=== PATIENT | female | born 2000 | race Caucasian/White ===

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

== ENCOUNTER 2019-12-28 12:02 | Emergency (ER) | payer BC ==
[~2019-12-28] VITALS: Ht 160 cm; Wt 56.7 kg
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
--- OUTSIDE RECORDS SUMMARY | 2019-12-28 12:05 | XMS REPORT | Summary of Care ---
Author Author [facility] Organization [facility] Address Unknown Phone Unavailable Care Team Providers Care Herb Grower Name Role Phone Pcp, Patient Does Not Have A PCP [phone] Encounter Details Care Team Description Date Type Department Doctor Unassigned, [address] [place] [address] 03/11/2019 Orders Only [facility] [address] [place] [address] Allergies Comments Active Allergy Reactions Severity Noted Date Bulk Chemical Hives 10/18/2015 documented as of this encounter (statuses as of 03/18/2019) Medications End Date Status Medication Sig Dispensed Refills Start Date Active albuterol 90 Inhale 2 0 mcg/actuation inhaler Puffs. Active multivitamin Take 1 tablet 90 tablet 3 ( VITAMIN) by mouth 8 tabletIndications: daily. Encounter for supervision of normal first in first trimester Active budesonide/formoterol Inhale. 0 fumarate (SYMBICORT INHALE) Active ALBUTEROL INHALE Inhale. 0 Active Progesterone Micronized Insert 1 30 Each 3 (ENDOMETRIN) 100 mg suppository 9 vaginal insert in vagina BID until 12 weeks gestation documented as of this encounter (statuses as of 03/18/2019) Active Problems Problem Noted Date History of chlamydia 04/19/2018 Estimated Date of Delivery Comments Yes 07/14/2019 Based on Ultrasound , Entered from OB Ultrasound Reporting. documented as of this encounter (statuses as of 03/18/2019) Social History Date Tobacco Use Types Packs/Day Years Used Quit: 04/12/2018 Passive Smoke Exposure - Cigarettes 0.25 1 Never Smoker Smokeless Tobacco: Never Used Drinks/Week oz/Week Comments Alcohol Use not since No Estimated Date of Delivery Comments Yes 07/14/2019 Based on Ultrasound , Entered from OB Ultrasound Reporting. Sex Assigned at Date Recorded Not on file Industry Job Start Date Occupation Not on file Not on file Not on file Travel End Travel History Travel Start No recent travel history available. 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 Health Maintenance Due Date Last Done Comments MENINGOCOCCAL B VACCINES 2009 (1 of 2 - Risk Bexsero 2-dose series) HPV VACCINES (1 - Female 2014 3-dose series) DTaP,Tdap,and Td Vaccines 2018 (1 - Tdap) INFLUENZA VACCINE 04/13/2019 CHLAMYDIA SCREENING 11/27/2019 11/26/2018, 2017 MENINGOCOCCAL VACCINE Aged Out No longer eligib le based on patient's age to complete this topic PNEUMOCOCCAL 0-64 YEARS Aged Out No longer elig ible based COMBINED SERIES on patient's age to complete this topic documented as of this encounter Procedures Comments Procedure Name Priority Date/Time Associated Diag nosis AUTHORIZATION FOR RELEASE Routine 03/11/2019 OF PHI 12:01 AM CDT documented in this encounter Results Not on filedocumented in this encounter Insurance Type Payer Benefit Subscriber ID Effective Phone Address Plan / Dates Group PPO/POS BCBS OF [place] BCBS OF [id number] 2018-P [phone] [address] [facility] [id number] OUT OF [facility] [id number] Medicaid [place] [facility] [place] xxxxxxxxx 9-P PLAN - MANAGED MEDICAID [employer]ILDR[employer] documented as of this encounter
--- OUTSIDE RECORDS SUMMARY | 2019-12-28 12:05 | XMS REPORT | Summary of Care ---
Author Author [facility] - Health Organization [facility] - Health Address Unknown Phone Unavailable Care Team Providers Care Shoemaking Cutter Name Role Phone Pcp, Patient Does Not Have A PCP [phone] Encounter Details Care Team Description Date Type Department Doctor Unassigned, [address] [place] [address] 04/02/2019 Orders Only [facility] [address] [place] [address] Allergies Comments Active Allergy Reactions Severity Noted Date Bulk Chemical Hives 10/18/2015 documented as of this encounter (statuses as of 04/02/2019) Medications End Date Status Medication Sig Dispensed [...] as of this encounter (statuses as of 04/02/2019) Active Problems Problem Noted Date History of chlamydia 04/19/2018 Estimated Date of Delivery Comments Yes 07/14/2019 Based on Ultrasound , Entered from OB Ultrasound Reporting. 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 Reviewer Maternal Medi cine Visit Health Maintenance Due Date Last Done Comments MENINGOCOCCAL B VACCINES 2009 (1 of 2 - Risk Bexsero 2-dose series) HPV VACCINES (1 - Female 2014 3-dose series) DTaP,Tdap,and Td Vaccines 2018 (1 - Tdap) INFLUENZA VACCINE (#1) 2019 CHLAMYDIA SCREENING 11/27/2019 11/26/2018, 2017 MENINGOCOCCAL VACCINE Aged Out No longer eligib le based on patient's age to complete this topic PNEUMOCOCCAL 0-64 YEARS Aged Out No longer elig ible based COMBINED SERIES on patient's age to complete this topic documented as of this encounter Procedures Comments Procedure Name Priority Date/Time Associated Diag nosis AUTHORIZATION FOR RELEASE Routine 04/02/2019 OF PHI 12:01 AM CDT documented in this encounter Results Not on filedocumented in this encounter Insurance Type Payer Benefit Subscriber ID Effective Phone Address Plan / Dates Group PPO/POS BC[place] BCBS OF [id number] 2018-P [phone] [facility] [address] OUT OF [facility] [id number] Medicaid [place] [facility] [place] xxxxxxxxx 9-P PLAN - MANAGED MEDICAID [employer]ILDR[employer] documented as of this encounter
--- OUTSIDE RECORDS SUMMARY | 2019-12-28 12:05 | XMS REPORT | Summary of Care ---
Author Author [facility] - Health Organization [facility] - [facility] Address Unknown Phone Unavailable Care Team Providers Care Manager Digital Ad Operations Name Role Phone Pcp, Patient Does Not Have A PCP [phone] Reason for Visit * Reason Comments Results Encounter Details Care Team Description Date Type Department Mayra Patterson MD [address] [place], [place] [address] Results 03/12/2019 Telephone [facility], [address], [address] [place] [address] Allergies Comments Active Allergy Reactions Severity Noted Date Bulk Chemical Hives 10/18/2015 documented as of this encounter (statuses as of 03/13/2019) Medications End Date Status Medication Sig Dispensed [...] as of this encounter (statuses as of 03/13/2019) Active Problems Problem Noted Date History of chlamydia 04/19/2018 Estimated Date of Delivery Comments Yes 07/14/2019 Based on Ultrasound , Entered from OB Ultrasound Reporting. 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
--- OUTSIDE RECORDS SUMMARY | 2019-12-28 12:05 | XMS REPORT ---
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 ISTAT-GLUCOSE (test code = GLUP) 76 MG/DL 70-110 N ISTAT-BUN (test code = BUNP) 3 MG/DL 7-18 L BEDSIDE CREATININE (test code = CREATBED) 0.4 MG/DL 0.6-1.3 L GLOMERULAR FILTRATION RATE POC (test code = GFRBED) 216 ML/MIN URINALYSIS [id number] 16:23:00* Test Item Value Reference Range Interpretation Comments UA COLOR (test code = COLU) YELLOW YEL/STRAW UA APPEARANCE (test code = APPU) SL CLOUDY CLEAR UA GLUCOSE DIPSTICK (test code = DGLUU) NEGATIVE NEGATIVE UA BILIRUBIN DIPSTICK (test code = BILU) NEGATIVE NEGATIVE UA KETONE DIPSTICK (test code = KETU) NEGATIVE NEGATIVE UA SPECIFIC GRAVITY (test code = SGU) 1.025 1.005-1.030 N UA BLOOD DIPSTICK (test code = HALIE) NEGATIVE NEGATIVE UA PH DIPSTICK (test code = ANY) 6.0 5.0-7.0 N UA PROTEIN DIPSTICK (test code = PROU) NEGATIVE NEGATIVE UA UROBILINIOGEN DIPSTICK (test code = URO) 2.0 mg/dL 0.2-1.0 A UA NITRITE DIPSTICK (test code = SUSSY) NEGATIVE NEGATIVE UA LEUKOCYTE ESTERASE DIPSTICK (test code = LEUU) 1+ NEGA TIVE A UA RBC (test code = RBCU) 0-3 RBC/HPF 0-3 UA WBC NO REFLEX (test code = WBCUCL) 4-9 WBC/HPF 0-3 A UA BACTERIA (test code = BACU) 1+ /HPF NONE SEEN A UA SQUAMOUS CELLS (test code = SQU) 11-25 /HPF NONE SEEN A UA MUCUS (test code = MUCU) 1+ /LPF NONE SEEN URINALYSIS [id number] 19:24:00* Test Item Value Reference Range Interpretation Comments UA COLOR (test code = COLU) Light-Yellow YELLOW UA APPEARANCE (test code = APPU) CLEAR CLEAR UA GLUCOSE DIPSTICK (test code = DGLUU) NEGATIVE mg/dL NEGATIVE UA BILIRUBIN DIPSTICK (test code = BILU) NEGATIVE mg/dL NEGATIVE UA KETONE DIPSTICK (test code = KETU) NEGATIVE mg/dL NEGATIVE UA SPECIFIC GRAVITY (test code = SGU) 1.020 1.001-1.035 UA BLOOD DIPSTICK (test code = HALIE) Negative mg/dL NEGATIVE UA PH DIPSTICK (test code = NAY) 7.5 5.0-8.0 UA PROTEIN DIPSTICK (test code = PROU) NEGATIVE mg/dL NEGATIVE UA UROBILINIOGEN DIPSTICK (test code = URO) 2.0 (1+) mg/dL NEGATIVE A UA NITRITE DIPSTICK (test code = SUSSY) NEGATIVE NEGATIVE UA LEUKOCYTE ESTERASE W REFLEX (test code = LEUUR) 75 Adela/uL (1+) Adela/uL NEGATIVE A UA WBC (test code = WBCU) 6-10 per HPF 0-5 A UA RBC (test code = RBCU) 0-2 #/HPF 0-5 UA EPITHELIAL CELLS (test code = EPIU) FEW per HPF FEW UA BACTERIA (test code = BACU) NONE SEEN #/HPF NONE UA MUCUS (test code = MUCU) FEW #/LPF FEW Urine Source? Clean CatchURINALYSIS [id number] 19:19:00* Test Item Value Reference Range Interpretation Comments UA COLOR (test code = COLU) Light-Yellow YELLOW UA APPEARANCE (test code = APPU) CLEAR CLEAR UA GLUCOSE DIPSTICK (test code = DGLUU) NEGATIVE mg/dL NEGATIVE UA BILIRUBIN DIPSTICK (test code = BILU) NEGATIVE mg/dL NEGATIVE UA KETONE DIPSTICK (test code = KETU) NEGATIVE mg/dL NEGATIVE UA SPECIFIC GRAVITY (test code = SGU) 1.020 1.001-1.035 UA BLOOD DIPSTICK (test code = HALIE) Negative mg/dL NEGATIVE UA PH DIPSTICK (test code = NAY) 7.5 5.0-8.0 UA PROTEIN DIPSTICK (test code = PROU) NEGATIVE mg/dL NEGATIVE UA UROBILINIOGEN DIPSTICK (test code = URO) 2.0 (1+) mg/dL NEGATIVE A UA NITRITE DIPSTICK (test code = SUSSY) NEGATIVE NEGATIVE UA LEUKOCYTE ESTERASE W REFLEX (test code = LEUUR) 75 Adela/uL (1+) Adela/uL NEGATIVE A UA WBC (test code = WBCU) per HPF 0-5 UA RBC (test code = RBCU) per HPF 0-5 UA EPITHELIAL CELLS (test code = EPIU) per HPF Few UA BACTERIA (test code = BACU) per HPF NONE Urine Source? Clean CatchBASIC METABOLIC [id number] 17:53:00* Test Item Value Reference Range Interpretation Comments SODIUM (test code = NA) 137 mmol/L 136-145 N POTASSIUM (test code = K) 3.8 mmol/L 3.5-5.1 N CHLORIDE (test code = CL) 106.0 mmol/L 98-107 N CARBON DIOXIDE (test code = CO2) 22.0 mmol/L 21-32 N ANION GAP (test code = GAP) 12.8 10-20 N GLUCOSE (test code = GLU) 83 mg/dL 74-106 N BLOOD UREA NITROGEN (test code = BUN) 8 mg/dL 7-18 N GLOMERULAR FILTRATION RATE (test code = GFR) > 60 mL/min >=60 Estimated GFR by using Modified MDRD formula.Chronic kidney disease is defined as either kidney damageor GFR <60 mL/min/1.73 m2 for >3 months. CREATININE (test code = CREAT) 0.40 mg/dL 0.55-1.02 L Note change in reference range due to change in reagent. BUN/CREATININE RATIO (test code = BUN/CREA) 20.0 10-20 N CALCIUM (test code = CA) 8.9 mg/dL 8.5-10.1 N HEPATIC FUNCTION [id number] 17:53:00* Test Item Value Reference Range Interpretation Comments TOTAL PROTEIN (test code = PROT) 7.1 gram/dL 6.4-8.2 N ALBUMIN (test code = ALB) 3.2 g/dL 3.4-5.0 L GLOBULIN (test code = GLOB) 3.9 gram/dL 2.7-4.2 N ALBUMIN/GLOBULIN RATIO (test code = A/G) 0.8 0.75-1.50 N BILIRUBIN TOTAL (test code = BILT) 0.20 mg/dL 0.0-1.0 N BILIRUBIN DIRECT (test code = BILD) 0.06 mg/dL 0.0-0.20 N SGOT/AST (test code = AST) 11 IUnit/L 15-37 L SGPT/ALT (test code = ALT) 17 IUnit/L 12-78 N ALKALINE PHOSPHATASE TOTAL (test code = ALKP) 75 IUnit/L 45-117 N Note change in reference range due to change in reagent. [id number] 17:53:00* Test Item Value Reference Range Interpretation Comments LIPASE (test code = LIP) 111 U/L 73.0-393.0 N HCG SERUM [id number] 17:53:00* Test Item Value Reference Range Interpretation Comments HCG SERUM BETA (test code = HCG) 94654.0 mIU/mL 0-3 H Interfering substances present in the serum of somepatients may cause a false-positive result in this assay.Questionable elevations in serum hCG should be confirmedwith a urine hCG. Suspected Trophoblastic Neoplasms shouldnot be diagnosed based on serun hCG/beta hCG alone. Theymust be confirmed by clinical history and tissue diagnosis.INTERPRETATION:B-HCG LEVELS <5 SHOULD BE CONSIDERED "NEGATIVE." *WHEN BODERLINE RESULTS ARE ENCOUNTERED,PATIENT SAMPLESSHOULD BE REDRAWN 48 HOURS. 0-1 WEEKS AFTER CONCEPTION 5-50 MIU/ML1-2 WEEKS AFTER CONCEPTION 50-500 MIU/ML2-3 WEEKS AFTER CONCEPTION 100 -5,000 MIU/ML3-4 WEEKS AFTER CONCEPTION 500-10,000 MIU/ML4-5 WEEKS AFTER CONCEPTION 1000 -50,000 MIU/ML5-6 WEEKS AFTER CONCEPTION 10,000-100,000 MIU/ML6-8 WEEKS AFTER CONCEPTION 15,000- 200,000 MIU/ML2-3 MONTHS AFTER CONCEPTION 10,000-100,000 MIU/ML BASIC METABOLIC [id number] 17:53:00* Test Item Value Reference Range Interpretation Comments SODIUM (test code = NA) 137 mmol/L 136-145 N POTASSIUM (test code = K) 3.8 mmol/L 3.5-5.1 N CHLORIDE (test code = CL) 106.0 mmol/L 98-107 N CARBON DIOXIDE (test code = CO2) 22.0 mmol/L 21-32 N ANION GAP (test code = GAP) 12.8 10-20 N GLUCOSE (test code = GLU) 83 mg/dL 74-106 N BLOOD UREA NITROGEN (test code = BUN) 8 mg/dL 7-18 N GLOMERULAR FILTRATION RATE (test code = GFR) > 60 mL/min >=60 Estimated GFR by using Modified MDRD formula.Chronic kidney disease is defined as either kidney damageor GFR <60 mL/min/1.73 m2 for >3 months. CREATININE (test code = CREAT) 0.40 mg/dL 0.55-1.02 L Note change in reference range due to change in reagent. BUN/CREATININE RATIO (test code = BUN/CREA) 20.0 10-20 N CALCIUM (test code = CA) 8.9 mg/dL 8.5-10.1 N HEPATIC FUNCTION [id number] 17:53:00* Test Item Value Reference Range Interpretation Comments TOTAL PROTEIN (test code = PROT) 7.1 gram/dL 6.4-8.2 N ALBUMIN (test code = ALB) 3.2 g/dL 3.4-5.0 L GLOBULIN (test code = GLOB) 3.9 gram/dL 2.7-4.2 N ALBUMIN/GLOBULIN RATIO (test code = A/G) 0.8 0.75-1.50 N BILIRUBIN TOTAL (test code = BILT) 0.20 mg/dL 0.0-1.0 N BILIRUBIN DIRECT (test code = BILD) 0.06 mg/dL 0.0-0.20 N SGOT/AST (test code = AST) 11 IUnit/L 15-37 L SGPT/ALT (test code = ALT) 17 IUnit/L 12-78 N ALKALINE PHOSPHATASE TOTAL (test code = ALKP) 75 IUnit/L 45-117 N Note change in reference range due to change in reagent. [id number] 17:53:00* Test Item Value Reference Range Interpretation Comments LIPASE (test code = LIP) 111 U/L 73.0-393.0 N HCG SERUM [id number] 17:53:00* Test Item Value Reference Range Interpretation Comments HCG SERUM BETA (test code = HCG) 98989.0 mIU/mL 0-3 H Interfering substances present in the serum of somepatients may cause a false-positive result in this assay.Questionable elevations in serum hCG should be confirmedwith a urine hCG. Suspected Trophoblastic Neoplasms shouldnot be diagnosed based on serun hCG/beta hCG alone. Theymust be confirmed by clinical history and tissue diagnosis.INTERPRETATION:B-HCG LEVELS <5 SHOULD BE CONSIDERED "NEGATIVE." *WHEN BODERLINE RESULTS ARE ENCOUNTERED,PATIENT SAMPLESSHOULD BE REDRAWN 48 HOURS. 0-1 WEEKS AFTER CONCEPTION 5-50 MIU/ML1-2 WEEKS AFTER CONCEPTION 50-500 MIU/ML2-3 WEEKS AFTER CONCEPTION 100 -5,000 MIU/ML3-4 WEEKS AFTER CONCEPTION 500-10,000 MIU/ML4-5 WEEKS AFTER CONCEPTION 1000 -50,000 MIU/ML5-6 WEEKS AFTER CONCEPTION 10,000-100,000 MIU/ML6-8 WEEKS AFTER CONCEPTION 15,000- 200,000 MIU/ML2-3 MONTHS AFTER CONCEPTION 10,000-100,000 MIU/ML - US [id number] 17:52:00 Name: ROBBY GARCIA [facility] : 2000 Age/S: 19 / F [address] [facility] Unit #: [id number] [place] [address] Phys: Haritha Wing NP Acct: [id number] Dis Date: Status: REG ER PHONE #: [phone] Exam Date: 02/18/2019 1740 FAX #: [phone] Reason: abdominal pain EXAMS: CPT CODE: [id number] [place] LTD 85003 REASON FOR EXAM: abdominal pain EXAM ORDER DATE: 02/18/2019 4:53 PM Attending MVidal: Haritha Wing NP PROCEDURE: - US LTD FINDINGS: The cervix is closed with the cervical canal length measured 3 cm heart rate is 143 beats per minute. NUNO is 17.4 cm. presentation is cephalic. The placenta is posterior and is of grade 1. No evidence of placental abruption. BPD: 4.7cm (20w2d) HC: 17.1cm (19w5d) AC: 14.1cm (19w3d) FL: 3.1cm (19w4d) Estimated weight is 0 lb 11 oz +/- 0 lb 2 oz. anatomy is grossly unremarkable. posterior fossa, bilateral ventricles, 4-chambered heart, stomach, kidneys, spine, 3 vessel cord, cord insertion, bladder, and extremities are within normal limits. IMPRESSION: A single viable IUP with estimated age of 19 week 5 day +/-1 week 3 day . Estimated delivery date is 07/10/2019. at 5892 Reported and signed by: Tesfaye Doan M.D. CC: Haritha Wing NP Technologist: Kelvin Harvey Trnmab Date/Time: 02/18/2019 (1751) tLAMINVTL Orig Print D/T: S: 02/18/2019 (6716) Probe: PAGE 1 Signed Report PROTHROMBIN [id number] 17:33:00 * Test Item Value Reference Range Interpretation Comments PROTHROMBIN TIME PATIENT (test code = PTP) 11.2 seconds 9.0-14.0 N INTERNATIONAL NORMAL RATIO (test code = INR) 0.9 0.8-1.2 N The therapeutic range for oral anticoagulant therapy formost indications is an international normalized ratio (INR)of between 2.0 and 3.0. The recommended therapeutic INRrange for various clinical situations is listed below: Clinical Situation INR range Pulmonary e mbolism treatment (2.0-3.0)Venous thrombosis treatmentVenous thrombosis prophylaxis (high risk surgery)Prevention of systemic embolism from: Acute myocardial infarction Valvular heart disease Atrial fibrillation Mechanical prosthetic heart valves (2.5-3.5) IS PATIENT ON ANTICOAGULANTS? NTHROMBOPLASTIN TIME [id number] 17:33:00* Test Item Value Reference Range Interpretation Comments THROMBOPLASTIN TIME PARTIAL (test code = PTT) 29.5 seconds 25.0-36. 5 N IS PATIENT ON ANTICOAGULANTS? NBASIC METABOLIC [id number] 17:30:00* Test Item Value Reference Range Interpretation Comments SODIUM (test code = NA) 137 mmol/L 136-145 N POTASSIUM (test code = K) 3.8 mmol/L 3.5-5.1 N CHLORIDE (test code = CL) 106.0 mmol/L 98-107 N CARBON DIOXIDE (test code = CO2) mmol/L 21-32 ANION GAP (test code = GAP) 10-20 GLUCOSE (test code = GLU) mg/dL 74-106 BLOOD UREA NITROGEN (test code = BUN) mg/dL 7-18 GLOMERULAR FILTRATION RATE (test code = GFR) mL/min >=60 CREATININE (test code = CREAT) mg/dL 0.55-1.02 BUN/CREATININE RATIO (test code = BUN/CREA) 10-20 CALCIUM (test code = CA) mg/dL 8.5-10.1 HEPATIC FUNCTION [id number] 17:30:00* Test Item Value Reference Range Interpretation Comments TOTAL PROTEIN (test code = PROT) gram/dL 6.4-8.2 ALBUMIN (test code = ALB) g/dL 3.4-5.0 GLOBULIN (test code = GLOB) gram/dL 2.7-4.2 ALBUMIN/GLOBULIN RATIO (test code = A/G) 0.75-1.50 BILIRUBIN TOTAL (test code = BILT) mg/dL 0.0-1.0 BILIRUBIN DIRECT (test code = BILD) mg/dL 0.0-0.20 SGOT/AST (test code = AST) IUnit/L 15-37 SGPT/ALT (test code = ALT) IUnit/L 12-78 ALKALINE PHOSPHATASE TOTAL (test code = ALKP) IUnit/L 45-117 [id number] 17:30:00* Test Item Value Reference Range Interpretation Comments LIPASE (test code = LIP) U/L 73.0-393.0 HCG SERUM [id number] 17:30:00* Test Item Value Reference Range Interpretation Comments HCG SERUM BETA (test code = HCG) mIU/mL 0-3 CBC W/O [id number] 17:24:00* Test Item Value Reference Range Interpretation Comments WHITE BLOOD CELL (test code = WBC) 12.9 K/mm3 4.5-12.5 H RED BLOOD CELL (test code = RBC) 3.98 mill/mm3 3.7-5.2 N HEMOGLOBIN (test code = HGB) 12.3 gram/dL 11.5-15.5 N HEMATOCRIT (test code = HCT) 35.4 % 36.0-46.0 L MEAN CELL VOLUME (test code = MCV) 88.9 fL 80-98 N MEAN CELL HGB (test code = MCH) 30.9 picogram 27.0-33.0 N MEAN CELL HGB CONCETRATION (test code = MCHC) 34.7 gram/dL 33.0-36. 0 N RED CELL DISTRIBUTION WIDTH (test code = RDW) 12.1 % 11.6-16. 2 N PLATELET COUNT (test code = PLT) 253 K/mm3 150-450 N MEAN PLATELET VOLUME (test code = MPV) 10.7 fL 6.7-11.0 N CBC W/O [id number] 17:21:00* Test Item Value Reference Range Interpretation Comments WHITE BLOOD CELL (test code = WBC) K/mm3 4.5-12.5 RED BLOOD CELL (test code = RBC) mill/mm3 3.7-5.2 HEMOGLOBIN (test code = HGB) 12.3 gram/dL 11.5-15.5 N HEMATOCRIT (test code = HCT) % 36.0-46.0 MEAN CELL VOLUME (test code = MCV) fL 80-98 MEAN CELL HGB (test code = MCH) picogram 27.0-33.0 MEAN CELL HGB CONCETRATION (test code = MCHC) gram/dL 33.0-36. 0 RED CELL DISTRIBUTION WIDTH (test code = RDW) % 11.6-16. 2 PLATELET COUNT (test code = PLT) K/mm3 150-450 MEAN PLATELET VOLUME (test code = MPV) fL 6.7-11.0 Urine [id number] 22:35:00* Test Item Value Reference Range Interpretation Comments Urine WBC (test code = 5821-4) 6-10 0-5 [facility] [id number] 22:35:00* Test Item Value Reference Range Interpretation Comments Urine RBC (test code = 91214-6) 50- 0-5 [facility] [id number] 22:35:00* Test Item Value Reference Range Interpretation Comments Urine Bacteria (test code = 52484-9) RARE NONE [facility] Epithelial [id number] 22:35:00 * Test Item Value Reference Range Interpretation Comments Urine Epithelial Cells (test code = 68748-4) RARE NONE [facility] [id number] 22:32:00* Test Item Value Reference Range Interpretation Comments Urine Color (test code = 5778-6) RED YELLOW [facility] [id number] 22:32:00* Test Item Value Reference Range Interpretation Comments Urine Clarity (test code = 24569-3) TURBID CLEAR [facility] Specific [id number] 22:32:00 * Test Item Value Reference Range Interpretation Comments Urine Specific Seney (test code = 5811-5) 1.005 1.010-1.02 5 [facility] [id number] 22:32:00* Test Item Value Reference Range Interpretation Comments Urine pH (test code = 09516-6) 5 5-7 [facility] Leukocyte [id number] 22:32:00* Test Item Value Reference Range Interpretation Comments Urine Leukocyte Esterase (test code = 5799-2) 1+ NEGATIVE [facility] [id number] 22:32:00* Test Item Value Reference Range Interpretation Comments Urine Nitrite (test code = 79869-1) NEGATIVE NEGATIVE [facility] [id number] 22:32:00* Test Item Value Reference Range Interpretation Comments Urine Protein (test code = 5804-0) 3+ NEGATIVE [facility] Glucose (UA)2018-05-15 22:32:00* Test Item Value Reference Range Interpretation Comments Urine Glucose (UA) (test code = 2349-9) NEGATIVE NEGATIVE [facility] [id number] 22:32:00* Test Item Value Reference Range Interpretation Comments Urine Ketones (test code = 92524-4) NEGATIVE NEGATIVE [facility] [id number] 22:32:00* Test Item Value Reference Range Interpretation Comments Urine Urobilinogen (test code = 23499-0) 0.2 0.2-1 [facility] [id number] 22:32:00* Test Item Value Reference Range Interpretation Comments Urine Bilirubin (test code = 1978-6) NEGATIVE NEGATIVE [facility] [id number] 22:32:00* Test Item Value Reference Range Interpretation Comments Urine Blood (test code = 78186-3) 4+ NEGATIVE [facility] HospitalUS [id number] 21:54:00 [place] [address] Patient Name: ROBBY GARCIA MR #: [id number] : 0 2000 Age/Sex: 18/F Req #: [id number] Adm Physician: Ordered by: KRISTIAN MENJIVAR RECEIVER STOCKER Report #: [id number] Location: ER Room/Be d: Procedure: [id number] US/US TRANSVAGINAL Exam Date : Exam Time: REPORT STATUS: Signed EXAM: T ransabdominal and Transvaginal Pelvic Ultrasound INDICATION: Retain product s of conception COMPARISON: None TECHNIQUE: Grayscale transverse and sagi ttal transabdominal and transvaginal images were obtained of the pelvis. Trans vaginal imaging was medically necessary to better evaluate the endometrium and the adnexa. CLINICAL HISTORY: 18 year old A0; last menstrual perio d: No available. FINDINGS: Uterus Orientation: Normal Size: 8 .2 x 3.8 x 3.7 cm, Normal Mass: None Cervix: Normal Endometrium: Th ickness: 2.0 cm, abnormal. Appearance: Heterogeneous echotexture without foca l thickening. There is diffuse vascular flow through areas of endometrial soft tissue. Right ovary: Not seen Left ovary: Not seen Adnexa: Normal Cul-de-sac: No free fluid IMPRESSION: 1. Findings are joe tible with retained products of conception. 2. The ovaries are not visualized . 3. No evidence of IUP Signed by: Dr. Jass Holt M.D. on 05/15/2018 10 :13 PM Dictated By: JASS POP MD 12 Transcribed By: JESSICA on 05/15/182212 COPY TO: KRISTIAN MENJIVAR NP Sodium [id number] 20:55:00* Test Item Value Reference Range Interpretation Comments Sodium Level (test code = 2951-2) 138 136-145 [facility] HospitalPotassium [id number] 20:55:00* Test Item Value Reference Range Interpretation Comments Potassium Level (test code = 2823-3) 3.5 3.5-5.1 [facility] HospitalChloride [id number] 20:55:00* Test Item Value Reference Range Interpretation Comments Chloride Level (test code = 2075-0) 106 98-107 [facility] HospitalCarbon Dioxide [id number] 20:55:00* Test Item Value Reference Range Interpretation Comments Carbon Dioxide Level (test code = 2028-9) 20 22-29 [facility] HospitalAnion [id number] 20:55:00* Test Item Value Reference Range Interpretation Comments Anion Gap (test code = 55241-4) 15.5 8-16 [facility] HospitalBlood Urea [id number] 20:55:00* Test Item Value Reference Range Interpretation Comments Blood Urea Nitrogen (test code = 3094-0) 9 7-26 [facility] HospitalCreatinine2018-10-03 20:55:00* Test Item Value Reference Range Interpretation Comments Creatinine (test code = 2160-0) 0.62 0.57-1.11 [facility] HospitalBUN/Creatinine [id number] 20:55:00* Test Item Value Reference Range Interpretation Comments BUN/Creatinine Ratio (test code = 3097-3) 15 6-25 [facility] HospitalEstimat Glomerular Filtration Rate 2018-05-15 20:55:00* Test Item Value Reference Range Interpretation Comments Estimat Glomerular Filtration Rate (test code = 055563516) 60- >60 Ranges were taken from the National Kidney Disease Education Program and the [facility] literature.Reference ranges:60 or greater: Vbrfnn24-20 ( for 3 consecutive months): Chronic kidney disease 15 or less: Kidney failureEastland Memorial HospitalGlucose Acznu2931-53-80 20:55:00* Test Item Value Reference Range Interpretation Comments Glucose Level (test code = SPT6685) 99 74-118 [facility] HospitalCalcium Qfxqi9900-90-25 20:55:00* Test Item Value Reference Range Interpretation Comments Calcium Level (test code = 33080-7) 9.7 8.4-10.2 [facility] HospitalTotal Ppieaxdtp8413-92-27 20:55:00* Test Item Value Reference Range Interpretation Comments Total Bilirubin (test code = 1975-2) 0.5 0.2-1.2 [facility] HospitalAspartate Amino Transf (AST/SGOT) 2018-05-15 20:55:00* Test Item Value Reference Range Interpretation Comments Aspartate Amino Transf (AST/SGOT) (test code = Aspartate Amino Transf (AST/SGOT)) 16 5-34 [facility] HospitalAlanine Aminotransferase (ALT/SGPT) 2018-05-15 20:55:00* Test Item Value Reference Range Interpretation Comments Alanine Aminotransferase (ALT/SGPT) (test code = 1742-6) 13 0-55 [facility] HospitalTotal Zrqmtge3351-28-10 20:55:00* Test Item Value Reference Range Interpretation Comments Total Protein (test code = 2885-2) 7.4 6.5-8.1 [facility] HospitalAlbumin2018-10-03 20:55:00* Test Item Value Reference Range Interpretation Comments Albumin (test code = 1751-7) 4.4 3.5-5.0 [facility] HospitalGlobulin2018-10-03 20:55:00* Test Item Value Reference Range Interpretation Comments Globulin (test code = 42035-2) 3.0 2.3-3.5 [facility] HospitalAlbumin/Globulin [id number] 20:55:00 * Test Item Value Reference Range Interpretation Comments Albumin/Globulin Ratio (test code = 1759-0) 1.5 0.8-2.0 [facility] HospitalAlkaline Kgxchydztlg1780-67-54 20:55:00* Test Item Value Reference Range Interpretation Comments Alkaline Phosphatase (test code = 6768-6) 57 40-150 [facility] HospitalWhite Blood [id number] 20:49:00* Test Item Value Reference Range Interpretation Comments White Blood Count (test code = 6690-2) 12.70 4.8-10.8 [facility] HospitalRed Blood Dcuvt1921-10-38 20:49:00* Test Item Value Reference Range Interpretation Comments Red Blood Count (test code = 789-8) 3.90 3.6-5.1 [facility] HospitalHemoglobin2018-10-03 20:49:00* Test Item Value Reference Range Interpretation Comments Hemoglobin (test code = 31549-0) 11.8 12.0-16.0 [facility] HospitalHematocrit2018-10-03 20:49:00* Test Item Value Reference Range Interpretation Comments Hematocrit (test code = 4544-3) 33.7 34.2-44.1 [facility] Corpuscular [id number] 20:49:00* Test Item Value Reference Range Interpretation Comments Mean Corpuscular Volume (test code = 787-2) 86.4 81-99 [facility] Corp[facility] [id number] 20:49:00* Test Item Value Reference Range Interpretation Comments Mean Corpuscular Hemoglobin (test code = 785-6) 30.3 28-32 [facility] 2018-05-15 20:49:00* Test Item Value Reference Range Interpretation Comments Mean Corpuscular Hemoglobin Concent (test code = 786-4) 35.0 31-35 [facility] Distribution [id number] 20:49:00* Test Item Value Reference Range Interpretation Comments Red Cell Distribution Width (test code = 54664-6) 12.0 11.7 -14.4 [facility] HospitalPlatelet Uxmtl2022-09-13 20:49:00* Test Item Value Reference Range Interpretation Comments Platelet Count (test code = 777-3) 242 140-360 [facility]Ne[facility] (%) (Auto)2018-05-15 20:49:00 * Test Item Value Reference Range Interpretation Comments Neutrophils (%) (Auto) (test code = 25074-0) 70.1 38.7-80.0 [facility] HospitalLymphocytes (%) (Auto)2018-05-15 20:49:00 * Test Item Value Reference Range Interpretation Comments Lymphocytes (%) (Auto) (test code = 736-9) 19.8 18.0-39.1 [facility])2018-05-15 20:49:00* Test Item Value Reference Range Interpretation Comments Monocytes (%) (Auto) (test code = 5905-5) 5.8 4.4-11.3 [facility] ([facility])2018-05-15 20:49:00 * Test Item Value Reference Range Interpretation Comments Eosinophils (%) (Auto) (test code = 713-8) 3.5 0.0-6.0 [facility] ([facility])2018-05-15 20:49:00* Test Item Value Reference Range Interpretation Comments Basophils (%) (Auto) (test code = 706-2) 0.4 0.0-1.0 [facility] %2018-05-15 20:49:00* Test Item Value Reference Range Interpretation Comments IM GRANULOCYTES % (test code = IM GRANULOCYTES %) 0.4 0.0- 1.0 [facility]Neutrophils # (Auto)2018-05-15 20:49:00* Test Item Value Reference Range Interpretation Comments Neutrophils # (Auto) (test code = 751-8) 8.9 2.1-6.9 [facility]Lymph[facility] # (Auto)2018-05-15 20:49:00* Test Item Value Reference Range Interpretation Comments Lymphocytes # (Auto) (test code = 37764-7) 2.5 1.0-3.2 [facility] # (Auto)2018-05-15 20:49:00* Test Item Value Reference Range Interpretation Comments Monocytes # (Auto) (test code = 742-7) 0.7 0.2-0.8 [facility] (Auto)2018-05-15 20:49:00* Test Item Value Reference Range Interpretation Comments Eosinophils # (Auto) (test code = 711-2) 0.5 0.0-0.4 [facility] # (Auto)2018-05-15 20:49:00* Test Item Value Reference Range Interpretation Comments Basophils # (Auto) (test code = 704-7) 0.1 0.0-0.1 [facility] HospitalAbsolute Immature Granulocyte (auto 2018-05-15 20:49:00* Test Item Value Reference Range Interpretation Comments Absolute Immature Granulocyte (auto (marielena t code = Absolute Immature Granulocyte (auto) 0.05 0-0.1 [facility]
--- NOTE | 2019-12-28 12:12 | NUR ---
client requested a female nurse.
--- NOTE | 2019-12-28 13:39 | Emergency Department Note ---
History of Present Illnes History of Present Illness Chief Complaint: Genitourinary History of Present Illness This is a 19 year old female LEFT FOOT PAIN X 4 DAYS, TWISTED IT WHILE GETTING OUT OF HOT TUB ALSO WANTS TO BE SEEN FOR BUMPS/PIMPLES ON LABIA. C/O OF SHOOTING PAIN UP HER LEGS. PATIENT IS SEXUALLY ACTIVE WITH 2 PARTNERS. 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 Any updates have been documented here. Past Medical History Recent Fever: No Clinical Suspicion of Infectio: No New/Unexplained Change in Ment: No Past Medical History: Asthma Past Surgical History: None, Social History Smoking Cessation: Never Smoker Counseling Performed: No Alcohol Use: Social Any Illegal Drug Use: No TB Exposure/Symptoms: No Physically hurt or threatened: No Other Last Tetanus: UTD Any Pre-Existing Lines (PICC,: No Is patient up to date on immun: Yes Last Flu: NONE Last Pneumovax: NONE Review of Systems Review of Systems Constitutional: no symptoms EENTM: no symptoms Cardiovascular: no symptoms Respiratory: no symptoms Gastrointestinal: no symptoms Genitourinary: as per HPI, other (lesions on labia) Musculoskeletal: joint pain Neurological: no symptoms Psychological: no symptoms Endocrine: no symptoms Hematological/Lymphatic: no symptoms Review of other systems All other systems reviewed and negative. Physical Exam Related Data Allergies: Coded Allergies: naproxen (Verified Adverse Reaction, Mild, VOMITING, 12/28/19) Uncoded Allergies: A AND D OINTMENT (Allergy, Mild, HIVES, 12/28/19) Triage Vital Signs Vital Signs Date Time Temp Pulse Resp B/P (MAP) Pulse Ox O2 Delivery O2 Flow Rate FiO2 12/28/19 12:22 98.6 82 18 101/73 97 Physical Exam CONSTITUTIONAL Constitutional: well-developed, well-nourished HENT HENT: normocephalic, atraumatic, oropharynx clear/moist, nose normal HENT L/R: left ext ear normal, right ext ear normal EYES Eyes: PERRL, conjunctivae normal NECK Neck: ROM normal PULMONARY Pulmonary: effort normal, breath sounds normal CARDIOVASCULAR Cardiovascular: regular rhythm, heart sounds normal, capillary refill normal, normal rate GASTROINTESTINAL Abdominal: soft, nontender, bowel sounds normal GENITOURINARY Genitourinary: exam deferred SKIN Skin: warm, dry MUSCULOSKELETAL Musculoskeletal: tenderness (dorsum of mid left foot and at left ant talo- fibular ligament) NEUROLOGICAL Neurological: alert, oriented x 3, no gross motor or sensory deficits PSYCHOLOGICAL Psychological: mood/affect normal, judgement normal Results Imaging Imaging results reviewed: Yes Impressions Procedure: [id number] DX/FOOT LEFT COMPLETE Exam Date: 12/28/19 Exam Time: 1312 REPORT STATUS: Signed Exam: Left ankle radiographs-3 views; left foot radiographs-3 views Clinical History: Inversion. Comparison: None. Findings/Impression: No evidence of acute fracture or malalignment. Mild soft tissue edema in the ankle. Signed by: Dr. Cosme Negrete MD on 12/28/2019 1:35 PM Procedure: [id number] DX/ANKLE 3+ VIEWS LEFT Exam Date: 12/28/19 Exam Time: 1312 REPORT STATUS: Signed Exam: Left ankle radiographs-3 views; left foot radiographs-3 views Clinical History: Inversion. Comparison: None. Findings/Impression: No evidence of acute fracture or malalignment. Mild soft tissue edema in the ankle. Signed by: Dr. Cosme Negrete MD on 12/28/2019 1:35 PM Critical Care Time Subsequent provider I assumed direction of critical care for this patient from another provider of my specialty. Assessment & Plan Assessment & Plan Problems: (1) Herpes genitalis (2) Sprain Assessment & Plan xray to r/o fracture. 1. anca wrap crutches prm 2. tylenol and motrin as directed 3. return to ed as needed 4. follow up with your doctor orthopedic doctor in 1-2 days without fail 5. Follow up with [employer] tomorrow Depart Disposition: HOME, SELF-CARE Last Vital Signs Date Time Temp Pulse Resp B/P (MAP) Pulse Ox O2 Delivery O2 Flow Rate FiO2 12/28/19 12:22 98.6 82 18 101/73 97 ANTWAN DE LEON MD December 28, 2019 13:39
== END 2019-12-28 14:20 | disposition home or self-care (01) ==
LOC: ER 12:02
DX: M25.572 Pain in left ankle and joints of left foot (principal); S93.402A Sprain of unspecified ligament of left ankle, initial encounter; X50.1XXA Overexertion from prolonged static or awkward postures, initial encounter; Y92.008 Other place in unspecified non-institutional (private) residence as the place of occurrence of the external cause; A60.00 Herpesviral infection of urogenital system, unspecified
CPT/HCPCS: 99283